=== PATIENT | male | born 1965 | race Caucasian/White ===

== ENCOUNTER 2018-11-08 13:36 | Inpatient (IN) | payer OTHER ==
[2018-11-08] MEDS ORDERED: ACETAMINOPHEN 325 MG TAB PO (14:30)
[2018-11-08] MEDS ORDERED: DOCUSATE SODIUM 100 MG CAP PO (14:30)
[2018-11-08] MEDS ORDERED: NACL 0.9% 3 ML SYG IV (14:30)
[2018-11-08] MEDS ORDERED: NA PHOSPHATE/BIPHOS 133 ML ENEMA PR (14:30)
[2018-11-08] MEDS ORDERED: ONDANSETRON 4 MG TAB PO (14:30)
[2018-11-08 15:58] LABS: ADD MAN DIFF? NO
[2018-11-08 16:01] LABS: WHITE BLOOD COUNT 8.9 10^3/ul (4.8-10.8)
[2018-11-08 16:01] LABS: BASOPHILS % 0.4 % (0.0-2.0); EOSINOPHILS # 0.1 10^3/ul (0.0-0.5); EOSINOPHILS % 1.5 % (0.0-7.0); HEMATOCRIT 29.8 % (42.0-52.0); HEMOGLOBIN 9.6 g/dl (14.0-18.0); LYMPHOCYTES # 1.3 10^3/ul (0.8-2.9); LYMPHOCYTES % 14.8 % (15.0-51.0); MEAN CORPUSCULAR HEMOGLOBIN 29.5 pg (29.0-33.0); MEAN CORPUSCULAR HGB CONC 32.2 g/dl (32.0-37.0); MEAN CORPUSCULAR VOLUME 91.7 fl (82.0-101.0); MEAN PLATELET VOLUME 8.7 fl (7.4-10.4); MONOCYTE # 0.6 10^3/ul (0.3-0.9); MONOCYTES % 6.8 % (0.0-11.0); NEUTROPHIL # 6.8 10^3/ul (1.6-7.5); NEUTROPHILS % 75.9 % (39.0-77.0); PLATELET COUNT 656 10^3/UL (140-415); RED BLOOD COUNT 3.25 10^6/ul (4.70-6.10); RED CELL DISTRIBUTION WIDTH 13.8 % (11.5-14.5)
[2018-11-08 16:22] LABS: ALANINE AMINOTRANSFERASE 57 IU/L (13-69); ALBUMIN 3.9 g/dl (3.3-4.9); ALBUMIN/GLOBULIN RATIO 1.14; ALKALINE PHOSPHATASE 115 IU/L (42-121); ANION GAP 9 (5-13); ASPARTATE AMINO TRANSFERASE 33 IU/L (15-46); BILIRUBIN,INDIRECT 0.7 mg/dl (0-1.1); BILIRUBIN,TOTAL 0.7 mg/dl (0.2-1.3); BLOOD UREA NITROGEN 19 mg/dl (7-20); CALCIUM 9.4 mg/dl (8.4-10.2); CARBON DIOXIDE 29 mmol/L (21-31); CHLORIDE 104 mmol/L (97-110); CREATININE 0.83 mg/dl (0.61-1.24); Estimated GFR > 60 mL/min (>60); GLUCOSE 107 mg/dl (70-220); POTASSIUM 4.4 mmol/L (3.5-5.1); SODIUM 142 mmol/L (135-144); TOTAL PROTEIN 7.3 g/dl (6.1-8.1)
[2018-11-08 17:06] LABS: ERYTHROCYTE SEDIMENTATION RATE 85 mm/Hr (0-20)
[2018-11-08] MEDS ORDERED: PENDING SANTYL ORDER FOR WOUND CARE XX (18:30)
[2018-11-08] MEDS: DOCUSATE SODIUM 100 MG CAP PO (20:46)
[2018-11-08] MEDS: FAMOTIDINE 20 MG TAB PO (20:46)
[2018-11-08] MEDS: HYDROCODONE/APAP (5/325) TAB PO (20:48)
[2018-11-08] MEDS: ENOXAPARIN 30 MG/0.3 ML SYG SC (20:50)
[2018-11-09 00:43] LABS: ADD UMIC NO; UR ASCORBIC ACID NEGATIVE (NEGATIVE); UR BILIRUBIN (Dip) NEGATIVE (NEGATIVE); UR BLOOD (Dip) NEGATIVE (NEGATIVE); UR CLARITY CLEAR (CLEAR); UR COLOR YELLOW (YELLOW); UR GLUCOSE (Dip) NEGATIVE (NEGATIVE); UR KETONES (Dip) NEGATIVE (NEGATIVE); UR LEUKOCYTE ESTERASE (Dip) NEGATIVE Leu/ul (NEGATIVE); UR NITRITE (Dip) NEGATIVE (NEGATIVE); UR SPECIFIC GRAVITY (Dip) 1.017 (1.003-1.030); UR TOTAL PROTEIN (Dip) NEGATIVE (NEGATIVE); UR UROBILINOGEN (Dip) NEGATIVE (NEGATIVE)
[2018-11-09 08:01] LABS: ADD MAN DIFF? NO
[2018-11-09 08:05] LABS: WHITE BLOOD COUNT 7.7 10^3/ul (4.8-10.8)
[2018-11-09 08:05] LABS: BASOPHILS % 0.5 % (0.0-2.0); EOSINOPHILS # 0.2 10^3/ul (0.0-0.5); HEMATOCRIT 29.3 % (42.0-52.0); HEMOGLOBIN 9.5 g/dl (14.0-18.0); LYMPHOCYTES # 1.3 10^3/ul (0.8-2.9); LYMPHOCYTES % 16.3 % (15.0-51.0); MEAN CORPUSCULAR HEMOGLOBIN 29.6 pg (29.0-33.0); MEAN CORPUSCULAR HGB CONC 32.4 g/dl (32.0-37.0); MEAN CORPUSCULAR VOLUME 91.3 fl (82.0-101.0); MEAN PLATELET VOLUME 8.9 fl (7.4-10.4); MONOCYTE # 0.6 10^3/ul (0.3-0.9); MONOCYTES % 7.4 % (0.0-11.0); NEUTROPHIL # 5.6 10^3/ul (1.6-7.5); NEUTROPHILS % 73.1 % (39.0-77.0); PLATELET COUNT 687 10^3/UL (140-415); RED BLOOD COUNT 3.21 10^6/ul (4.70-6.10)
[2018-11-09 08:21] LABS: ALANINE AMINOTRANSFERASE 45 IU/L (13-69); ALBUMIN 3.7 g/dl (3.3-4.9); ALBUMIN/GLOBULIN RATIO 1.15; ALKALINE PHOSPHATASE 112 IU/L (42-121); ANION GAP 8 (5-13); ASPARTATE AMINO TRANSFERASE 29 IU/L (15-46); BILIRUBIN,INDIRECT 0.6 mg/dl (0-1.1); BILIRUBIN,TOTAL 0.6 mg/dl (0.2-1.3); BLOOD UREA NITROGEN 21 mg/dl (7-20); CALCIUM 9.3 mg/dl (8.4-10.2); CARBON DIOXIDE 28 mmol/L (21-31); CHLORIDE 106 mmol/L (97-110); CREATININE 0.84 mg/dl (0.61-1.24); Estimated GFR > 60 mL/min (>60); GLUCOSE 100 mg/dl (70-220); POTASSIUM 4.4 mmol/L (3.5-5.1); SODIUM 142 mmol/L (135-144); TOTAL PROTEIN 6.9 g/dl (6.1-8.1)
[2018-11-09 08:31] LABS: CHOL/HDL RATIO 6.5 RATIO; HDL CHOLESTEROL 22 mg/dl (28-71); LDL CHOLESTEROL,CALCULATED 86 mg/dl; TRIGLYCERIDES 185 mg/dl (0-149)
[2018-11-09 08:31] LABS: CHOLESTEROL 145 mg/dl (100-200)
[2018-11-09] MEDS: FAMOTIDINE 20 MG TAB PO ×2 (08:49→21:45)
[2018-11-09] MEDS: DOCUSATE SODIUM 100 MG CAP PO ×2 (08:49→21:45)
[2018-11-09] MEDS: ENOXAPARIN 30 MG/0.3 ML SYG SC ×2 (08:50→21:54)
[2018-11-09] MEDS: ALFUZOSIN (SR) 10 MG TAB PO (21:45)
[2018-11-09] MEDS: ZOLPIDEM 5 MG TAB PO (23:10)
[2018-11-09] MEDS: HYDROCODONE/APAP (5/325) TAB PO (23:53)
[2018-11-10] MEDS: DOCUSATE SODIUM 100 MG CAP PO ×2 (09:54→20:37)
[2018-11-10] MEDS: FAMOTIDINE 20 MG TAB PO ×2 (09:54→20:37)
[2018-11-10] MEDS: ENOXAPARIN 30 MG/0.3 ML SYG SC ×2 (09:55→20:39)
[2018-11-10] MEDS: HYDROCODONE/APAP (5/325) TAB PO ×2 (10:18→22:18)
[2018-11-10] MEDS: ALFUZOSIN (SR) 10 MG TAB PO (20:37)
[2018-11-10] MEDS: ZOLPIDEM 5 MG TAB PO (22:18)
[2018-11-11] MEDS: LEVOFLOXACIN 500 MG TAB PO (06:44)
[2018-11-11] MEDS: FAMOTIDINE 20 MG TAB PO ×2 (08:52→21:00)
[2018-11-11] MEDS: DOCUSATE SODIUM 100 MG CAP PO ×2 (08:56→21:00)
[2018-11-11] MEDS: ENOXAPARIN 30 MG/0.3 ML SYG SC ×2 (08:56→21:04)
[2018-11-11] MEDS: ALFUZOSIN (SR) 10 MG TAB PO (21:00)
[2018-11-11] MEDS: HYDROCODONE/APAP (5/325) TAB PO (21:01)
[2018-11-11] MEDS: ZOLPIDEM 5 MG TAB PO (21:01)
[2018-11-12] MEDS: LEVOFLOXACIN 500 MG TAB PO (06:36)
[2018-11-12] MEDS: BISACODYL (EC) 5 MG TAB PO (06:36)
[2018-11-12] MEDS: DOCUSATE SODIUM 100 MG CAP PO ×2 (08:22→21:00)
[2018-11-12] MEDS: FAMOTIDINE 20 MG TAB PO ×2 (08:22→21:49)
[2018-11-12] MEDS: ENOXAPARIN 30 MG/0.3 ML SYG SC ×2 (08:26→21:51)
[2018-11-12] MEDS: ALFUZOSIN (SR) 10 MG TAB PO (21:49)
[2018-11-12] MEDS: ZOLPIDEM 5 MG TAB PO (21:50)
[2018-11-12] MEDS: HYDROCODONE/APAP (5/325) TAB PO (21:50)
[2018-11-13] MEDS: HYDROCODONE/APAP (5/325) TAB PO (04:22)
[2018-11-13] MEDS: LEVOFLOXACIN 500 MG TAB PO (06:33)
[2018-11-13] MEDS: FAMOTIDINE 20 MG TAB PO ×2 (09:22→21:03)
[2018-11-13] MEDS: DOCUSATE SODIUM 100 MG CAP PO ×2 (09:22→21:00)
[2018-11-13] MEDS: ENOXAPARIN 30 MG/0.3 ML SYG SC ×2 (09:30→21:07)
[2018-11-13] MEDS: ZOLPIDEM 5 MG TAB PO (21:03)
[2018-11-13] MEDS: ALFUZOSIN (SR) 10 MG TAB PO (21:03)
[2018-11-14] MEDS: HYDROCODONE/APAP (5/325) TAB PO ×3 (03:25→21:57)
[2018-11-14] MEDS: LEVOFLOXACIN 500 MG TAB PO (06:33)
[2018-11-14] MEDS: FAMOTIDINE 20 MG TAB PO ×2 (09:46→20:42)
[2018-11-14] MEDS: DOCUSATE SODIUM 100 MG CAP PO ×2 (09:46→20:42)
[2018-11-14] MEDS: ENOXAPARIN 30 MG/0.3 ML SYG SC ×2 (09:47→20:44)
[2018-11-14] MEDS: ALFUZOSIN (SR) 10 MG TAB PO (20:42)
[2018-11-14] MEDS: ZOLPIDEM 5 MG TAB PO (21:57)
[2018-11-15] MEDS: HYDROCODONE/APAP (5/325) TAB PO ×2 (05:01→12:44)
[2018-11-15] MEDS: LEVOFLOXACIN 500 MG TAB PO (05:01)
[2018-11-15] MEDS: DOCUSATE SODIUM 100 MG CAP PO (08:57)
[2018-11-15] MEDS: FAMOTIDINE 20 MG TAB PO (08:57)
[2018-11-15] MEDS: ENOXAPARIN 30 MG/0.3 ML SYG SC (08:58)
== END 2018-11-15 14:30 | disposition home or self-care (01) | DRG 560 ==
LOC: VRC 13:36
DX: S32.810D Multiple fractures of pelvis with stable disruption of pelvic ring, subsequent encounter for fracture with routine healing (principal); N39.0 Urinary tract infection, site not specified; S32.049D Unspecified fracture of fourth lumbar vertebra, subsequent encounter for fracture with routine healing; S32.059D Unspecified fracture of fifth lumbar vertebra, subsequent encounter for fracture with routine healing; Z98.890 Other specified postprocedural states; S32.592D Other specified fracture of left pubis, subsequent encounter for fracture with routine healing; M10.9 Gout, unspecified; N40.0 Benign prostatic hyperplasia without lower urinary tract symptoms; Z91.81 History of falling; Q76.2 Congenital spondylolisthesis; Z74.09 Other reduced mobility; B96.89 Other specified bacterial agents as the cause of diseases classified elsewhere; S35.51 Injury of iliac artery or vein; R52 Pain, unspecified
CPT/HCPCS: 80053; 80061; 81003; 84443; 85025; 85651; 87081; 87086; 97110; 97112; 97116; 97150; 97162; 97167; 97530; 97535; 97542